=== PATIENT | female | born 1985 ===

== ENCOUNTER 2016-10-11 09:43 | Emergency (ER) | payer OTHER ==
[2016-10-11 10:00] VITALS: PULSE 75; TEMP 98.2; O2SAT 100
--- NOTE | 2016-10-11 10:14 | ED PDOC ---
Lower Extremity Pain/Injury Time Seen by Provider: 10/11/16 09:53 History Per: Patient (Left foot and ankle pain x 1 month. No h/o injury or trauma. Pain worse on ambulation) Onset/Duration Of Symptoms: Other (1 month) Current Symptoms Are (Timing): Still Present Severity: Mild Pain Scale Rating Of: 2 Past Medical History Vital Signs: Last Vital Signs Temp 98.2 F 10/11/16 09:59 Pulse 75 10/11/16 09:59 Resp 18 10/11/16 09:59 BP 143/100 H 10/11/16 09:59 Pulse Ox 100 10/11/16 09:59 - Medical History PMH: No Chronic Diseases - Family History Family History: States: Unknown Family Hx - Immunization History Hx Tetanus Toxoid Vaccination: No Hx Influenza Vaccination: No Hx Pneumococcal Vaccination: No - Home Medications Home Medications: Ambulatory Orders Medication Instructions Recorded Ibuprofen [Motrin Tab] 1 tab PO Q6H PRN #15 tab 08/08/16 Gabapentin [Neurontin] 300 mg PO TID #30 cap 08/31/16 Naproxen [Naprosyn] 500 mg PO Q12H #20 tab 10/11/16 - Allergies Allergies/Adverse Reactions: Allergies Allergy/AdvReac Type Severity Reaction Status Date / Time No Known Allergies Allergy Verified 12/16/14 12:06 Review of Systems Constitutional: Negative for: Fever Musculoskeletal: Positive for: Foot Pain Neurological: Negative for: Weakness, Numbness Physical Exam - Physical Exam Appears: Positive for: Non-toxic, No Acute Distress Skin: Positive for: Normal Color, Warm, DRY Extremity: Positive for: Other (Mild tenderness and swelling medial ankle and foot) Neurologic/Psych: Positive for: Alert. Negative for: Motor/Sensory Deficits - ECG O2 Sat by Pulse Oximetry: 100 Disposition - Clinical Impression Clinical Impression: Foot sprain - Patient ED Disposition Is Patient to be Admitted: No Counseled Patient/Family Regarding: Studies Performed, Diagnosis, Need For Followup, Rx Given - Disposition Referrals: FAMILY PROVIDER,NO [Primary Care Provider] - Podiatry Clinic [Outside] Disposition: Routine/Home Disposition Time: 13:17 Condition: FAIR Prescriptions: Naproxen [Naprosyn] 500 mg PO Q12H #20 tab Instructions: Foot Sprain (ED)
--- NOTE | 2016-10-11 11:56 | RAD ---
PROCEDURE: Left ankle dated 10/11/2016 HISTORY: pain COMPARISON: Correlation made with concurrent radiographs of the left foot TECHNIQUE: 3 standard views of the left ankle performed. FINDINGS: No evidence of acute displaced fracture nor dislocation. Osseous structures appear intact. Ankle mortise maintained. Talar dome appears intact. There is mild - moderate medial soft tissue swelling. Minimal lateral soft tissue swelling. IMPRESSION: No acute fracture seen. If symptoms persist or occult fracture suspected clinically recommend repeat radiographs in 5-10 days as most fractures should become radiographically evident in this timeframe. Mild to moderate medial and minimal lateral soft tissue swelling
--- NOTE | 2016-10-11 12:03 | RAD ---
PROCEDURE: Right foot dated 10/11/2016. HISTORY: pain COMPARISON: Correlation made with concurrent radiographs of the left ankle. TECHNIQUE: PA and lateral views of the left foot performed. FINDINGS: Current study reveals no definitive radiographic evidence of acute displaced fracture nor dislocation. Osseous structures appear intact. There is mild hallux valgus deformity with slight prominence of the head of the 1st metatarsal. IMPRESSION: No evidence of acute displaced fracture nor dislocation. If symptoms persist or occult fracture suspected clinically recommend repeat radiographs in 5-10 days as most fractures should become radiographically evident in this timeframe.
--- NOTE | 2016-10-11 12:31 | CP.PCM.CON ---
History of Present Illness - History of Present Illness History of Present Illness: 31 year old female with no PMHx presents to the ED for complaint of left ankle pain. She states that she has had this pain for about 2 months and has previously been see in the [facility] ED for this problem. She was instructed to follow up in [facility] but states that her jasmyn care has not gone through yet. She denies any trauma to the left ankle. She admits to a sharp pain with numbness to the medial aspect of the right ankle. She has previously taken ibuprofen and ice, both which she states do not help. Patient admits she has more pain with ambulation. She admits her pain is constant and has not gotten better since her last two ED visits. She denies n/v/f/c/sob/cp. Past Patient History - Infectious Disease Hx of Infectious Diseases: None - Past Social History Smoking Status: Never Smoked - PSYCHIATRIC Hx Substance Use: No - SURGICAL HISTORY Hx Surgeries: Yes Hx Section: Yes (x3) - ANESTHESIA Hx Anesthesia: No Meds Home Medications: Home Medication List Medication Instructions Recorded Confirmed Type Naproxen [Naprosyn] 500 mg PO Q12H #20 tab 10/11/16 Rx Allergies/Adverse Reactions: Allergies Allergy/AdvReac Type Severity Reaction Status Date / Time No Known Allergies Allergy Verified 12/16/14 12:06 Physical Exam - Constitutional Appears: Well, Non-toxic, No Acute Distress - Extremities Exam Additional comments: Vasc:DP and PT pulses palpable 2/4 b/l. CFT < 3 seconds to all digits. Non- pitting edema noted to left medial ankle. Neuro: Gross sensation intact b/l Ortho:Pain on palpation to deltoid ligaments. Pain on palpation of medial malleolus. Negative tinel sign of the PT nerve. No pain on palpation of lateral ligaments Derm: SKin is well-hydrated. No open lesions. Nails 1-5 b/l WNL for thickness and length. No ecchymosis noted - Neurological Exam Neurological exam: Alert, Oriented x3 - Psychiatric Exam Psychiatric exam: Normal Affect, Normal Mood Results - Vital Signs Recent Vital Signs: Last Vital Signs Temp 98.2 F 10/11/16 09:59 Pulse 75 10/11/16 09:59 Resp 18 10/11/16 09:59 BP 143/100 H 10/11/16 09:59 Pulse Ox 100 04/10/17 10:14 Assessment & Plan - Assessment and Plan (Free Text) Assessment: 31 year old female with left ankle sprain Plan: Patient examined and evaluated Chart and vitals reviewed Discussed with attending, Dr. Hernandez Radiographs reviewed-no signs of acute fracture note Modified smalls compressive dressing to left foot with surgical shoe Patient told to rest her left foot as much as possible Patient to keep dressing clean, dry, intact until f/l NSAID per ED attending Patient to elevate LLE prn Patient to follow up in Podiatry clinic next Tuesday
[2016-10-11 13:58] VITALS: BP 132/74; RESP 19
== END 2016-10-11 13:58 | disposition home or self-care (01) ==
LOC: H.ER 09:43
DX: S93.602A Unspecified sprain of left foot, initial encounter (principal); W22.8XXA Striking against or struck by other objects, initial encounter; Y92.89 Other specified places as the place of occurrence of the external cause

== ENCOUNTER 2018-09-29 11:58 | Emergency (ER) | payer SELFPAY ==
--- NOTE | 2018-09-29 13:30 | ED PDOC ---
HPI: Chest Pain Time Seen by Provider: 09/29/18 13:00 Chief Complaint (Nursing): Chest Pain Chief Complaint (Provider): breast pain History Per: Patient History/Exam Limitations: no limitations Onset/Duration Of Symptoms: Days Current Symptoms Are (Timing): Still Present Severity: Mild Pain Scale Rating Of: 5 Quality: Aching Associated Symptoms: denies: Nausea Modifying Factors: None Exacerbating Factors: Movement, Exertion Alleviating Factors: None Additional History Per: Patient Additional Complaint(s): 33 y/o female with a hx of breast breasts cysts presents to the ED c/o worsening bilateral breast pain for 2 days. Pt reports pain rad to back and bilateral arms. Reproducible with arm movements and on palpation. Pt states yesterday while in the shower lastnight, she massaged her right breast had scant amount of thick white discharge. Pt has been seen for same in 2014, patient states she had mammogram last year, which showed pt has breast cysts. Pt had left cysts removal in past. Mammogram done in 2014 demonstrated pt having "dense breast". Pt denies fever, chills, sob, denies contraceptive use, rash or redness to breast skin. - Risk Factors PE Risk Factors: Neg: Extremity Immobilization/Fx, Decreased Mobilty /Activity, Estrogen Usage, , Post- Past Medical History Vital Signs: Last Vital Signs Temp 98 F 09/29/18 12:29 Pulse 68 09/29/18 12:29 Resp 18 09/29/18 12:29 BP 128/65 09/29/18 12:29 Pulse Ox 97 09/29/18 12:29 JANELL Report Viewed: No - Medical History PMH: No Chronic Diseases - Surgical History Other surgeries: breast cyst removal - Family History Family History: States: Unknown Family Hx - Social History Alcohol: None Drugs: Denies - Immunization History Hx Tetanus Toxoid Vaccination: No Hx Influenza Vaccination: No Hx Pneumococcal Vaccination: No - Home Medications Home Medications: Ambulatory Orders Medication Instructions Recorded Ibuprofen [Motrin Tab] 1 tab PO Q6H PRN #15 tab 08/08/16 Gabapentin [Neurontin] 300 mg PO TID #30 cap 08/31/16 Naproxen [Naprosyn] 500 mg PO Q12H #20 tab 10/11/16 Naproxen 500 mg PO Q12H PRN #30 tab 09/29/18 - Allergies Allergies/Adverse Reactions: Allergies Allergy/AdvReac Type Severity Reaction Status Date / Time No Known Allergies Allergy Verified 12/16/14 12:06 BILLIE Risk Score for UA/NSTEMI - BILLIE Risk Score Age > 64: NO 3 or more CAD Risk Factors: NO Known CAD (Stenosis greater than 50%): NO Aspirin use in past 7 days: NO Severe Angina: NO EKG ST changes greater than 0.5mm: NO Positive Cardiac Marker: NO BILLIE Score: 0 Risk %: 5% Wells Criteria for PE - Wells Criteria for Pulmonary Embolism Clinical Signs and Symptoms of DVT: No P.E is #1 Diagnosis, or Equally Likely: No Heart Rate >100: No Immobilization at least 3 days;Surgery previous 4 weeks: No Previous, objectively diagnosed PE or DVT: No Hemoptysis: No Malignancy w/treatment within 6 months, or palliative: No Total Score: 0 Review of Systems Constitutional: Negative for: Fever, Chills, Sweats, Weakness Eyes: Negative for: Pain ENT: Negative for: Ear Pain, Nose Congestion Cardiovascular: Negative for: Chest Pain, Palpitations Respiratory: Negative for: Cough, Shortness of Breath Gastrointestinal: Negative for: Nausea, Vomiting, Abdominal Pain Genitourinary Female: Negative for: Dysuria Musculoskeletal: Negative for: Neck Pain Neurological: Positive for: Weakness (generalized weakness with pain to breast ) Physical Exam - Reviewed Nursing Documentation Reviewed: Yes Vital Signs Reviewed: Yes - Physical Exam Appears: Positive for: Well, Non-toxic, No Acute Distress Head Exam: Positive for: ATRAUMATIC, NORMAL INSPECTION, NORMOCEPHALIC Skin: Positive for: Normal Color (skin of breast is intact. Neg for redness or rash. ), Warm, Dry. Negative for: Rash Eye Exam: Positive for: EOMI, Normal appearance, PERRL ENT: Positive for: Normal ENT Inspection Neck: Positive for: Normal, Painless ROM Cardiovascular/Chest: Positive for: Regular Rate, Rhythm, Other (bilat nipple inversion, pt states this is normal for her. neg for discharge on exam. neg for blood. ) Respiratory: Positive for: CNT, Normal Breath Sounds Gastrointestinal/Abdominal: Positive for: Normal Exam, Soft Pelvic Exam: Positive for: External Exam Normal Back: Positive for: Normal Inspection Extremity: Positive for: Normal ROM Neurological/Psych: Positive for: Awake, Alert, Normal Tone - Laboratory Results Urine POC: Negative - ECG O2 Sat by Pulse Oximetry: 97 - Progress ED Course And Treament: bi-manual breast exam done (neg) Upreg Toradol 30mg IM Clinical findings discussed with patient. no further work up needed in the ED at this time. Pt given referral to [facility] for further follow-up for breast US and mammogram. Pt verbalizes understanding plan and agrees. Pt given return to ED precaution. Disposition - Clinical Impression Clinical Impression: Mastalgia in female - Patient ED Disposition Is Patient to be Admitted: No - Disposition Referrals: [facility] [Outside] [facility] [Outside] Disposition: Routine/Home Disposition Time: 13:15 Condition: GOOD Prescriptions: Naproxen 500 mg PO Q12H PRN #30 tab PRN Reason: Pain, Moderate (4-7) Instructions: Mastalgia (DC) Print Language: THAI - POA Present On Arrival: None
[2018-09-29 13:56] VITALS: BP 124/70; PULSE 78; RESP 19; TEMP 97.6; O2SAT 98
== END 2018-09-29 14:37 | disposition home or self-care (01) ==
LOC: H.ER 11:58
DX: N64.4 Mastodynia (principal)
CPT/HCPCS: 81025; 96372; 99283; J1885